=== PATIENT | female | born 1990 | race Caucasian/White ===

== ENCOUNTER 2018-01-30 18:34 | Emergency (ER) | payer OTHER ==
[~2018-01-30] VITALS: Ht 154.9 cm; Wt 94.8 kg
[~2018-01-30 18:34] MED LIST: AMOX1TAB12 PO; FIORICET 50-321 EACH PO; IBUPROFEN800 MG PO; INTESTINEX1 CA1 PO; INTESTINEX1 CAP PO; NASONEX17 GM NS; NITROFURANTOIN100 MG PO; ORPH100T PO; PRENATAL 19 TA1 EAC1 PO
[2018-01-30] MEDS ORDERED: DICLOFENAC POTA50 MG PO (22:08)
[2018-01-30] MEDS ORDERED: MEDROLPACK PO (22:08)
== END 2018-01-30 22:12 | disposition home or self-care (01) ==
LOC: ER 18:34
DX: M41.85 Other forms of scoliosis, thoracolumbar region (principal); M54.89 Other dorsalgia

== ENCOUNTER 2019-05-31 20:29 | Emergency (ER) | payer OTHER ==
[~2019-05-31] VITALS: Ht 154.9 cm; Wt 79.4 kg
[~2019-05-31 20:29] MED LIST changes: +DICLOFENAC POTA50 MG PO; +MEDROLPACK PO
== END 2019-05-31 22:35 | disposition home or self-care (01) ==
LOC: ER 20:29
DX: M62.830 Muscle spasm of back (principal); M54.5 Low back pain

== ENCOUNTER 2021-09-09 18:40 | Emergency (ER) | payer OTHER ==
[~2021-09-09] VITALS: Ht 154.9 cm; Wt 90.7 kg
== END 2021-09-09 19:36 | disposition home or self-care (01) ==
LOC: ER 18:40
DX: M54.9 Dorsalgia, unspecified (principal)

== ENCOUNTER 2023-06-27 20:27 | Emergency (ER) | payer OTHER ==
[~2023-06-27] VITALS: Ht 154.9 cm; Wt 88.9 kg
[2023-06-27 22:16] LABS: HEMATOCRIT 37.6 % (36.0-45.00); HEMOGLOBIN 12.9 g/dL (12.0-15.00); MEAN CELL VOLUME 89.1 fL (80.00-100.00); MEAN CORPUSCULAR HEMOGLOBIN 30.5 pg (27.00-32.0); MEAN CORPUSCULAR HGB CONC 34.3 g/dl (32.0-36.0); PLATELET COUNT 242 K/uL (150-450); RED BLOOD COUNT 4.23 M/uL (4.00-6.00); RED CELL DISTRIBUTION WIDTH 13.7 % (11.5-14.5)
== END 2023-06-28 00:26 | disposition home or self-care (01) ==
LOC: ER 20:27
PROVIDERS: General Practice
DX: J06.9 Acute upper respiratory infection, unspecified (principal); Z20.822 Contact with and (suspected) exposure to COVID-19

== ENCOUNTER → 2024-08-27 | Emergency (ER) | payer OTHER ==
[~2024-08-27] VITALS: Ht 154.9 cm; Wt 88.9 kg
== END | disposition left against medical advice (07) ==
LOC: ER 20:01
DX: Z53.21 Procedure and treatment not carried out due to patient leaving prior to being seen by health care provider (principal)

== ENCOUNTER 2024-10-31 12:05 | Emergency (ER) | payer OTHER ==
[~2024-10-31] VITALS: Ht 154.9 cm; Wt 68.5 kg
[2024-10-31] MEDS ORDERED: ACETAMINOPHEN 500 MG GEL..CAP PO ONE (13:27)
[2024-10-31 14:04] LABS: INFLUENZA A AG NEGATIVE (NEGATIVE); INFLUENZA B AG NEGATIVE (NEGATIVE)
[2024-10-31 14:05] LABS: COVID-19 AG NEGATIVE (NEGATIVE)
== END 2024-10-31 14:36 | disposition home or self-care (01) ==
LOC: ER 12:06
PROVIDERS: General Practice
DX: B34.9 Viral infection, unspecified (principal); R53.81 Other malaise

== ENCOUNTER 2024-12-11 21:06 | Emergency (ER) | payer OTHER ==
[~2024-12-11] VITALS: Ht 154.9 cm; Wt 88.9 kg
[2024-12-11] MEDS ORDERED: KETOROLAC TROMETHAMINE 30 MG VIAL IV ONE (23:00)
[2024-12-11] MEDS ORDERED: FAMOtidine 10 MG/ML (4ML VIAL) IV ONE (23:00)
[2024-12-11] MEDS ORDERED: PIPERACILLIN/TAZOBACTAM SODIUM 3.375 GM VIAL IV ONE ×2 (23:00→23:24)
[2024-12-11] MEDS ORDERED: KETOROLAC TROMETHAMINE 30 MG VIAL ONE (23:24)
[2024-12-11] MEDS ORDERED: FAMOTIDINE/PF 20 MG/2 ML VIAL ONE (23:24)
[2024-12-12 00:28] LABS: PH,URINE 5.5 (5.0-8.0); URINE APPEARANCE Cloudy; URINE BILIRRUBIN Negative (NEGATIVE); URINE BLOOD Small; URINE COLOR Dark Yellow; URINE GLUCOSE Negative (NEGATIVE); URINE KETONE Trace (NEGATIVE); URINE LEUKOCYTE Negative; URINE NITRATE Positive; URINE PROTEIN Negative (NEGATIVE)
[2024-12-12 00:36] LABS: URINE EPITHELIAL CELLS 16.3 uL (0.0-38.8); URINE RBC 50.3 uL (0.0-20.8); URINE WBC 29.2 uL (0.0-23.2)
[2024-12-12 00:37] LABS: BASO % 0.3 % (0.1-1.2); EOS # 0.45 (0.04-0.54); EOS % 4.4 % (0.7-7.0); HEMATOCRIT 35.6 % (34.1-44.9); HEMOGLOBIN 12.2 g/dL (11.2-15.7); LYMPH # 2.81 (1.18-3.74); LYMPH % 27.5 % (19.3-53.1); MEAN CORPUSCULAR HEMOGLOBIN 30.7 pg (25.6-32.2); MONO % 6.9 % (4.7-12.5); NEUT # 6.19 (1.56-6.13); NEUT % 60.6 % (34.0-71.1); PLATELET COUNT 249 K/uL (163-369); RED BLOOD COUNT 3.97 M/uL (3.93-5.22); RED CELL DISTRIBUTION WIDTH 12.3 % (11.6-14.4)
[2024-12-12 00:49] LABS: INR 1.04; PARTIAL THROMBOPLASTIN TIME 28.7 SECONDS (22.0-34.0); PROTHROMBIN TIME 11.3 SECONDS (9.0-11.5)
[2024-12-12 01:07] LABS: ERYTHROCYTE SEDIMENTATION RATE 31 mm/hr (0-20)
[2024-12-12 01:11] LABS: ALBUMIN 3.5 gm/dL (3.4-5.0); ALKALINE PHOSPHATASE 87 U/L (50-136); ALT/SGPT 42 U/L (12-78); ANION GAP 11 (10.0-20.0); AST/SGOT 26 U/L (15-37); BILIRUBIN TOTAL 1.06 mg/dL (0.3-1.2); BLOOD UREA NITROGEN 12 mg/dL (7-18); BUN CREA RATIO 20 (7.0-25.0); CALCIUM 8.6 mg/dL (8.5-10.1); CARBON DIOXIDE 24 mEq/L (21-32); CHLORIDE 109 mmol/L (98-107); CREATININE SERUM 0.59 mg/dL (0.55-1.02); GFR 116.68; GLOBULINA 3.9 G/DL (2.4-3.5); GLUCOSE FASTING 109 mg/dL (65-100); OSMOLALITY SERUM 280 MOSM/KG (275-295); SODIUM 140 mmol/L (136-145); TOTAL PROTEIN 7.4 gm/dL (6.4-8.2)
[2024-12-12 01:13] LABS: C-REACTIVE PROTEIN 3.56 MG/DL (0.00-0.29); HCG QUANTITATIVE < 1 mUI/mL (1-3)
[2024-12-12 01:43] LABS: URINE BACTERIA > 9821.5 uL (0.0-1933); URINE CAST 0.44 uL (0.0-1.40); URINE CRYSTALS FEW /HPF
[2024-12-12] MEDS ORDERED: AMOX-CLAV 875-1 EACH PO (02:34)
[2024-12-12] MEDS ORDERED: MUPIROCIN1 G1 TOP (02:34)
[2024-12-12] MEDS ORDERED: KETO10TA2 PO (02:34)
== END 2024-12-12 02:36 ==
LOC: ER 21:10
PROVIDERS: General Practice
DX: L03.90 Cellulitis, unspecified (principal)

== ENCOUNTER 2024-12-13 15:12 | Outpatient (CLI) | payer OTHER ==
[~2024-12-13 15:12] MED LIST changes: +AMOX-CLAV 875-1 EACH PO; +KETO10TA2 PO; +MUPIROCIN1 G1 TOP
== END 2024-12-13 15:25 | disposition home or self-care (01) ==
LOC: LAB 15:12
PROVIDERS: ATTEND Specialist
DX: L02.91 Cutaneous abscess, unspecified (principal)

== ENCOUNTER 2025-02-07 20:47 | Emergency (ER) | payer OTHER ==
[~2025-02-07] VITALS: Ht 154.9 cm; Wt 86.2 kg
[2025-02-07] MEDS ORDERED: PEPCID AC20 MG PO (21:39)
[2025-02-07] MEDS ORDERED: AMOX-CLAV 875-1 EACH PO (21:39)
[2025-02-07] MEDS ORDERED: DEXAMETHASONE SODIUM PHOSPHATE 4 MG/ML VIAL IM ONE (21:45)
[2025-02-07] MEDS ORDERED: CEFTRIAXONE SODIUM 1,000 MG VIAL IM ONE (21:45)
[2025-02-07 21:52] VITALS: BP 122/74; O2SAT 99
== END 2025-02-07 21:55 | disposition home or self-care (01) ==
LOC: ER 21:48
DX: J03.90 Acute tonsillitis, unspecified (principal); J00 Acute nasopharyngitis [common cold]; R50.9 Fever, unspecified